=== PATIENT | male | born 1960 | race Caucasian/White ===

== ENCOUNTER 2025-09-06 10:46 | Day surgery (SDC) | payer MEDICARE, MEDICAID, SELFPAY ==
[2025-08-23 13:19] VITALS: BMI 27.6
[2025-09-06] MEDS: LACTATED RINGERS 1,000 ML 42 ML IV (12:09)
[2025-09-06 12:16] VITALS: BP 159/82; PULSE 92; RESP 16; TEMP 36.2; O2SAT 98
--- NOTE | 2025-09-06 12:36 | P.HP_ITS ---
History of Present Illness History of Present Illness Date Patient Seen: 09/06/25 Chief complaint: Screening Colonoscopy [facility] Medical History (Updated 08/23/25 @ 13:19 by Tierra Sainz RN) Hypothyroid Hemorrhoids Colonic polyp Onychomycosis HTN (hypertension) Polyneuropathy Social History Smoking Status: Never smoker Meds Home Medications and Allergies Home Medications ?Medication ?Instructions ?Recorded ?Confirmed ?Type sodium,potassium,mag sulfates 17.5 See Rx Instructions PO .COMPLEX 07/30/25 Rx gram-3.13 gram-1.6 gram oral soln #354 mL (Suprep Bowel Prep Kit) Allergies Allergy/AdvReac Type Severity Reaction Status Date / Time No Known Drug Allergies Allergy Verified 09/06/25 12:10 Exam Vital Signs (past 8 hours): - 09/06/25 12:16 Temperature 97.2 F L Pulse Rate 92 H Respiratory Rate 16 Blood Pressure 159/82 H Pulse Oximetry 98 Oxygen Delivery Method Room Air Oxygen Delivery Method Room Air Narrative Exam Narrative: Oropharynx free of lesions Chest clear to auscultation percussion Cardiac exam reveals no S3 or murmur Assessment & Plan Assessment & Plan narrative: Need for colon cancer screening with colonoscopy. Risks, benefits, alternatives have been explained. Time-Based Coding :: [TOTAL MINUTES] spent with patient and on the chart (including review of chart, obtaining history, exam, reviewing outside data, placing orders, documenting ex am and treatment plan, and counseling patient) on [DATE]. [employer] Document charge(s): No
--- NOTE | 2025-09-06 12:38 | PM.OP.COLON ---
Operative Date/Time/Diagnoses Date of procedure: 09/06/25 Time of procedure: 13:50 Pre-op diagnosis: See indication and findings Post-op diagnosis: same Procedure & Clinicians Same procedure(s) as scheduled: Yes Indications: Screening colonoscopy Surgeon: Luis Batista Anesthesia Type: MAC +/- Procedure Notes Procedure in detail: After informed consent was obtained the patient was placed in left lateral decubitus position. The video colonoscope was placed in the rectum slowly advanced cecum. Preparation was good. On slow withdrawal mucosa was carefully examined. The scope was removed. The patient tolerated procedure. Blood loss none Complications none Sedation mac Findings 1. Normal colonoscopy to cecum Patient should have follow-up colonoscopy in 5 years. Estimated Blood Loss: 0 Complications: none
[2025-09-06 13:11] VITALS: BP 131/79; PULSE 76; RESP 16; TEMP 36.2; O2SAT 95
[2025-09-06 13:16] VITALS: BP 138/83; PULSE 84; RESP 16; TEMP 36.2; O2SAT 96
[2025-09-06 13:20] VITALS: BP 135/90; PULSE 79; RESP 16; TEMP 36.2; O2SAT 96
[2025-09-06 13:22] VITALS: BP 134/81; PULSE 84; RESP 16; TEMP 36.2; O2SAT 96
== END 2025-09-06 14:00 | disposition home or self-care (01) ==
PROVIDERS: Visit Provider Internal Medicine Gastroenterology
PROC: 0DJD8ZZ Inspection of Lower Intestinal Tract, Via Natural or Artificial Opening Endoscopic (ICD-10-PCS; CPT 45378; principal; 2025-09-06 12:30)
DX: Z12.11 Encounter for screening for malignant neoplasm of colon (principal)
CPT/HCPCS: G0121; J2704; J7120